=== PATIENT | male | born 2000 | race Two or more races ===

== ENCOUNTER 2022-10-24 00:12 | Emergency (ER) | payer SELFPAY ==
[~2022-10-24] VITALS: Ht 185.4 cm; Wt 125.1 kg
[2022-10-24 00:15] VITALS: BP 159/89
== END 2022-10-24 02:23 | disposition left against medical advice (07) ==
LOC: M ED 00:12
DX: Z53.21 Procedure and treatment not carried out due to patient leaving prior to being seen by health care provider (principal)